=== PATIENT | female | born 2000 | race Two or more races ===

== ENCOUNTER 2022-11-18 20:02 | Inpatient (IN) | payer MEDICAID ==
[~2022-11-18] VITALS: Ht 121.9 cm; Wt 67.0 kg
--- NOTE | 2022-11-18 20:36 | NUR ---
CLEANSED PT OF A BM AND FRESH ATTENDS PLACED.
[2022-11-18 20:47] LABS: BILIRUBIN,URINE NEGATIVE (Neg); CLARITY,URINE SLIGHTLY CLOUDY (Clear); COLOR,URINE YELLOW (Yellow); GLUCOSE, URINE NEGATIVE (Neg); KETONES,URINE 15 mg/dl (Neg); LEUKOCYTE ESTERASE ,URINE NEGATIVE (Neg); NITRITES, URINE NEGATIVE (Neg); OCCULT BLOOD,URINE SMALL (Neg); PH,URINE 8.5 (4.8-8.0); PROTEIN,URINE 30 mg/dl (Neg)
[2022-11-18 21:02] LABS: UA COLLECTION TYPE OTHER
[2022-11-18 21:04] LABS: SQUAMOUS EPITHELIAL CELL,UR NONE SEEN /LPF (FEW)
[2022-11-18 21:06] LABS: BACTERIA,URINE 2+ /HPF (Neg); MUCUS STRANDS MANY /LPF (Neg)
[2022-11-18 21:12] LABS: BASOPHILS % (AUTO) 0.2 % (0-1); EOSINOPHILS # (AUTO) 0.1 X10'3 (0-0.9); EOSINOPHILS % (AUTO) 0.7 % (0-6); HEMATOCRIT 43.3 % (35.0-45.0); HEMOGLOBIN 14.8 g/dl (12.0-16.0); LYMPHOCYTES # (AUTO) 2.7 X10'3 (1.1-4.8); LYMPHOCYTES % (AUTO) 21.7 % (21-51); MEAN CORPUSCULAR HEMOGLOBIN 33.3 PG (27.0-31.0); MEAN CORPUSCULAR HGB CONC 34.2 g/dL (33.0-36.5); MEAN CORPUSCULAR VOLUME 97.5 FL (78-98); MEAN PLATELET VOLUME 7.2 FL (7.4-10.4); MONOCYTES # (AUTO) 3.1 X10'3 (0-0.9); NEUTROPHILS # (AUTO) 6.6 X10'3 (1.8-7.7); NEUTROPHILS % (AUTO) 52.4 % (42-75); PLATELET COUNT 196 X10'3 (140-440); RED BLOOD COUNT 4.44 X10'6 (4.20-5.60); RED CELL DISTRIBUTION WIDTH 14.1 % (11.5-14.5); WHITE BLOOD COUNT 12.5 X10'3 (4.5-11.0)
--- NOTE | 2022-11-18 21:18 | NUR ---
received report assumed care of pt upon arrival pcxr labs completed pt has career consultant at bedside
[2022-11-18 21:45] LABS: TOTAL CELLS COUNTED 100
[2022-11-18 21:48] LABS: PLATELET ESTIMATE NORMAL
[2022-11-18 21:52] LABS: ANISOCYTOSIS 1+
[2022-11-18 22:18] LABS: ALANINE AMINOTRANSFERASE 19 U/L (12-78); ALBUMIN/GLOBULIN RATIO 0.5 (1.1-1.5); ALKALINE PHOSPHATASE 88 IU/L (46-116); ANION GAP 11 (8-16); ASPARTATE AMINO TRANSFERASE 20 U/L (10-37); BILIRUBIN,TOTAL 0.3 MG/DL (0.1-1.0); BLOOD UREA NITROGEN 13 MG/DL (7-18); BUN/CREATININE RATIO 28.3 (10.0-20.0); CALCIUM 9.5 MG/DL (8.5-10.1); CHLORIDE 99 MMOL/L (99-107); CREATININE 0.46 MG/DL (0.40-0.90); GLUCOSE 101 MG/DL (70-104); POTASSIUM 4.5 MMOL/L (3.5-5.1); SODIUM 136 MMOL/L (135-145); TOTAL PROTEIN 8.8 G/DL (6.4-8.2); eCRCL 53 ML/MIN; eGFR > 90 ML/MIN
[2022-11-18] MEDS ORDERED: normal saline 1000ML IV soln IVB ONE (22:35)
[2022-11-18] MEDS ORDERED: piperacillin/tazo 3.375gm/50ml 50 ML IV ONE (22:35)
[2022-11-18 23:37] LABS: PROTHROMBIN TIME 10.3 SECONDS (9.0-12.0)
[2022-11-19] VITALS (15 sets, daily range): BP systolic 106–149; BP diastolic 61–90; PULSE 64–140; RESP 12–24; TEMP 96.8–97.7; O2SAT 91–97
[2022-11-19] MEDS ORDERED: BACL20TA PO (00:47)
[2022-11-19] MEDS ORDERED: GUAI10LI15 PEG (00:47)
[2022-11-19] MEDS ORDERED: VALP250C44 PEG (00:47)
--- NOTE | 2022-11-19 00:55 | NUR ---
assumed care from [facility]
[2022-11-19] MEDS ORDERED: acetaminophen 325mg tablet PO PRN (01:20)
[2022-11-19] MEDS ORDERED: magnesium hydroxide 30ml (MOM) UD suspension PO PRN (01:20)
[2022-11-19] MEDS ORDERED: potassium Cl 40MEQ/1/2NS 520ml 520 ML IV PRN (01:20)
[2022-11-19] MEDS ORDERED: mag hydrox/Alum hydrox/simeth 30ml oral suspension PO PRN (01:20)
[2022-11-19] MEDS ORDERED: ondansetron/PF 4mg/2ml inj IV PRN (01:20)
[2022-11-19] MEDS ORDERED: PERFLUTREN PROTEIN-A MICROSPHR (Optison) 0.22 MG/ML 3ML VIAL IV PRN (01:30)
[2022-11-19] MEDS ORDERED: MIDO5TAB4 GT (01:38)
[2022-11-19] MEDS ORDERED: ARFO15VI20 NEB (01:38)
[2022-11-19] MEDS ORDERED: BACL20TA2 PO (01:38)
[2022-11-19] MEDS ORDERED: BUDE0.5A3 NEB (01:38)
[2022-11-19] MEDS ORDERED: LEVE500S9 GT (01:38)
[2022-11-19] MEDS ORDERED: VALP250S3 GT (01:38)
[2022-11-19] MEDS ORDERED: MULT9LIQ7 GT (01:40)
[2022-11-19] MEDS: normal saline 1000ml 1,000 ML IV SCH ×3 (02:05→21:56)
--- NOTE | 2022-11-19 03:26 | NUR ---
attempted to call report to floor, nurse demond thomason. awaiting return call
[2022-11-19] MEDS: albuterol 2.5 MG/3 ML nebule NEB SCH ×4 (03:27→20:01)
[2022-11-19] MEDS: piperacillin/tazo 3.375gm/50ml 50 ML IV SCH ×3 (05:40→22:19)
[2022-11-19] MEDS: valproate sod 250mg/5ml UD oral syrup JT SCH ×3 (08:00→21:14)
[2022-11-19] MEDS: docusate sod 100mg capsule PO SCH ×2 (08:00→20:00)
[2022-11-19] MEDS ORDERED: baclofen 10mg tablet PO SCH (08:00)
[2022-11-19] MEDS: budesonide 0.5mg/2ml UD nebule IH SCH ×2 (09:11→20:01)
--- NOTE | 2022-11-19 10:44 | NUR ---
Judson Consult: Chalo Granados w/ skin intact per EMR. Addendum: 11/19/22 at [address] Amended: Links added.
[2022-11-19 10:58] LABS: BASOPHILS # (AUTO) 0.1 X10'3 (0-0.2); BASOPHILS % (AUTO) 0.6 % (0-1); EOSINOPHILS # (AUTO) 0.1 X10'3 (0-0.9); EOSINOPHILS % (AUTO) 1.2 % (0-6); HEMATOCRIT 38.2 % (35.0-45.0); LYMPHOCYTES % (AUTO) 19.2 % (21-51); MEAN CORPUSCULAR HEMOGLOBIN 33.6 PG (27.0-31.0); MEAN CORPUSCULAR HGB CONC 34.1 g/dL (33.0-36.5); MEAN CORPUSCULAR VOLUME 98.7 FL (78-98); MEAN PLATELET VOLUME 6.5 FL (7.4-10.4); MONOCYTES # (AUTO) 2.5 X10'3 (0-0.9); MONOCYTES % (AUTO) 23.7 % (2-12); NEUTROPHILS # (AUTO) 5.8 X10'3 (1.8-7.7); NEUTROPHILS % (AUTO) 55.3 % (42-75); PLATELET COUNT 190 X10'3 (140-440); RED BLOOD COUNT 3.87 X10'6 (4.20-5.60); WHITE BLOOD COUNT 10.5 X10'3 (4.5-11.0)
[2022-11-19 11:15] LABS: ALANINE AMINOTRANSFERASE 16 U/L (12-78); ALBUMIN 2.7 G/DL (3.4-5.0); ALBUMIN/GLOBULIN RATIO 0.5 (1.1-1.5); ALKALINE PHOSPHATASE 75 IU/L (46-116); ANION GAP 9 (8-16); ASPARTATE AMINO TRANSFERASE 19 U/L (10-37); BILIRUBIN,TOTAL 0.4 MG/DL (0.1-1.0); BLOOD UREA NITROGEN 8 MG/DL (7-18); BUN/CREATININE RATIO 16.3 (10.0-20.0); CALCIUM 9.2 MG/DL (8.5-10.1); CHLORIDE 105 MMOL/L (99-107); CREATININE 0.49 MG/DL (0.40-0.90); GLUCOSE 102 MG/DL (70-104); POTASSIUM 4.4 MMOL/L (3.5-5.1); SODIUM 140 MMOL/L (135-145); TOTAL CARBON DIOXIDE 26.2 MMOL/L (24-32); TOTAL PROTEIN 7.9 G/DL (6.4-8.2); VALPROATE 59 UG/ML (50-100); eCRCL 50 ML/MIN; eGFR > 90 ML/MIN
[2022-11-19 11:17] LABS: PLATELET ESTIMATE NORMAL; TOTAL CELLS COUNTED 100
[2022-11-19 11:18] LABS: POLYCHROMASIA FEW; TOXIC VACUOLATION FEW
[2022-11-19] MEDS: levetiracetam 100mg/ml oral solution 5ml UD cup GT SCH ×2 (11:28→21:14)
[2022-11-19] MEDS: heparin, porcine 5000 units/ml vial SQ SCH ×2 (12:08→21:31)
[2022-11-19] MEDS: baclofen 10mg tablet PO SCH ×2 (16:21→21:14)
--- NOTE | 2022-11-19 18:58 | NUR ---
Problems reprioritized. Patient report given, questions answered & plan of care reviewed with DOUGIE CAT.
[2022-11-20] VITALS (12 sets, daily range): BP systolic 120–129; BP diastolic 68–77; PULSE 93–114; RESP 15–28; TEMP 97.7–98.7; O2SAT 84–96
[2022-11-20] MEDS: albuterol 2.5 MG/3 ML nebule NEB SCH ×4 (03:48→20:29)
[2022-11-20] MEDS: piperacillin/tazo 3.375gm/50ml 50 ML IV SCH ×3 (05:10→21:36)
--- NOTE | 2022-11-20 06:26 | NUR ---
Patient in room [facility]TH[facility] 4022A. I have received report from DOUGIE CAT and had the opportunity to ask questions and assume patient care.
--- NOTE | 2022-11-20 06:27 | NUR ---
Problems reprioritized. Patient report given, questions answered & plan of care reviewed with DOUGIE MANDEL.
[2022-11-20 07:12] LABS: BASOPHILS % (AUTO) 0.5 % (0-1); EOSINOPHILS # (AUTO) 0.2 X10'3 (0-0.9); EOSINOPHILS % (AUTO) 2.8 % (0-6); HEMOGLOBIN 12.2 g/dl (12.0-16.0); LYMPHOCYTES # (AUTO) 2.8 X10'3 (1.1-4.8); LYMPHOCYTES % (AUTO) 38.7 % (21-51); MEAN CORPUSCULAR HEMOGLOBIN 33.6 PG (27.0-31.0); MEAN CORPUSCULAR HGB CONC 33.8 g/dL (33.0-36.5); MEAN CORPUSCULAR VOLUME 99.6 FL (78-98); MEAN PLATELET VOLUME 6.7 FL (7.4-10.4); MONOCYTES # (AUTO) 1.2 X10'3 (0-0.9); MONOCYTES % (AUTO) 16.1 % (2-12); NEUTROPHILS # (AUTO) 3.1 X10'3 (1.8-7.7); NEUTROPHILS % (AUTO) 41.9 % (42-75); PLATELET COUNT 216 X10'3 (140-440); RED BLOOD COUNT 3.62 X10'6 (4.20-5.60); WHITE BLOOD COUNT 7.3 X10'3 (4.5-11.0)
[2022-11-20 07:29] LABS: ALANINE AMINOTRANSFERASE 21 U/L (12-78); ALBUMIN 2.4 G/DL (3.4-5.0); ALBUMIN/GLOBULIN RATIO 0.5 (1.1-1.5); ALKALINE PHOSPHATASE 76 IU/L (46-116); ANION GAP 6 (8-16); ASPARTATE AMINO TRANSFERASE 22 U/L (10-37); BILIRUBIN,TOTAL 0.3 MG/DL (0.1-1.0); BLOOD UREA NITROGEN 4 MG/DL (7-18); BUN/CREATININE RATIO 10.3 (10.0-20.0); CALCIUM 8.8 MG/DL (8.5-10.1); CHLORIDE 104 MMOL/L (99-107); CREATININE 0.39 MG/DL (0.40-0.90); GLUCOSE 82 MG/DL (70-104); SODIUM 136 MMOL/L (135-145); TOTAL CARBON DIOXIDE 26.5 MMOL/L (24-32); TOTAL PROTEIN 7.1 G/DL (6.4-8.2); eCRCL 63 ML/MIN; eGFR > 90 ML/MIN
[2022-11-20] MEDS: docusate sod 100mg capsule PO SCH (08:00)
[2022-11-20] MEDS: budesonide 0.5mg/2ml UD nebule IH SCH ×2 (08:37→20:29)
[2022-11-20] MEDS: levetiracetam 100mg/ml oral solution 5ml UD cup GT SCH ×2 (08:47→19:34)
[2022-11-20] MEDS: valproate sod 250mg/5ml UD oral syrup JT SCH ×3 (08:47→19:35)
[2022-11-20] MEDS: heparin, porcine 5000 units/ml vial SQ SCH ×2 (08:48→19:34)
--- NOTE | 2022-11-20 10:14 | NUR ---
TF consult: Pt admit for aspiration pneumonia per EMR. Pt presents with a G-J tube; see TF recs below. EMMANUEL reached out to caregiver Mallory at [facility], reports pt receives continuous Jevity 1.5kcal via G-tube at 55 ml/hr (3 cartons/day) which provides 711ml of volume a day, 1065 kcals, 45g of protein, and 540ml of water. Additionally pt receives 3 water flushes a day of 100ml with medication. LBM on 11/19 routine colace held due to diarrhea per EMR. Will continue to monitor and make recommendations as appropriate. Recommendations: 1.Continuous TF via G-tube of Jevity 1.2kcal at 45ml/hr goal rate. To provide 1080mL volume/day. 1296kcals, 60g of protein, and 872ml of water. 2.Water flushes q4H at 75ml, monitor serum Na 3.Monitor TF tolerance 4.Prealbumin q Sunday/ 5.routine bowel care 6.daily scaled wt Addendum: 11/20/22 at [address] Amended: Links added.
--- NOTE | 2022-11-20 10:25 | NUR ---
DOUGIE Orourke, notified of pt's + MRSA nasal swab, per lab.
[2022-11-20] MEDS ORDERED: acetaminophen 325mg/10.15ml oral unit dose solution GT PRN (12:05)
[2022-11-20] MEDS ORDERED: mag hydrox/Alum hydrox/simeth 30ml oral suspension GT PRN (12:08)
[2022-11-20] MEDS ORDERED: magnesium hydroxide 30ml (MOM) UD suspension GT PRN (12:09)
[2022-11-20 12:47] LABS: PREALBUMIN 14.3 MG/DL (19-36)
[2022-11-20] MEDS: baclofen 10mg tablet JT SCH ×2 (14:54→19:34)
[2022-11-20] MEDS: normal saline 1000ml 1,000 ML IV SCH (16:33)
--- NOTE | 2022-11-20 18:00 | NUR ---
Patient in room [facility]TH[facility] 4022. I have received report from DOUGIE Orourke and had the opportunity to ask questions and assume patient care.
--- NOTE | 2022-11-20 19:04 | NUR ---
Problems reprioritized. Patient report given, questions answered & plan of care reviewed with DOUGIE LIVE.
[2022-11-20] MEDS: docusate sodium 100mg/10ml UD cup GT SCH (19:34)
[2022-11-21] VITALS (13 sets, daily range): BP systolic 111–132; BP diastolic 58–70; PULSE 78–114; RESP 15–20; TEMP 97–100.2; O2SAT 90–98
[2022-11-21] MEDS: albuterol 2.5 MG/3 ML nebule NEB SCH ×4 (03:45→21:18)
[2022-11-21] MEDS: piperacillin/tazo 3.375gm/50ml 50 ML IV SCH ×2 (05:25→13:47)
[2022-11-21] MEDS: normal saline 1000ml 1,000 ML IV SCH ×2 (06:05→21:57)
--- NOTE | 2022-11-21 06:42 | NUR ---
Problems reprioritized. Patient report given, questions answered & plan of care reviewed with GUERRERO Murrell.
[2022-11-21 07:01] LABS: BASOPHILS % (AUTO) 0.3 % (0-1); EOSINOPHILS # (AUTO) 0.2 X10'3 (0-0.9); EOSINOPHILS % (AUTO) 2.7 % (0-6); HEMATOCRIT 37.2 % (35.0-45.0); HEMOGLOBIN 12.5 g/dl (12.0-16.0); LYMPHOCYTES # (AUTO) 2.7 X10'3 (1.1-4.8); LYMPHOCYTES % (AUTO) 40.6 % (21-51); MEAN CORPUSCULAR HEMOGLOBIN 33.1 PG (27.0-31.0); MEAN CORPUSCULAR HGB CONC 33.7 g/dL (33.0-36.5); MEAN CORPUSCULAR VOLUME 98.2 FL (78-98); MEAN PLATELET VOLUME 6.2 FL (7.4-10.4); MONOCYTES # (AUTO) 0.6 X10'3 (0-0.9); MONOCYTES % (AUTO) 9.7 % (2-12); NEUTROPHILS # (AUTO) 3.1 X10'3 (1.8-7.7); NEUTROPHILS % (AUTO) 46.7 % (42-75); PLATELET COUNT 238 X10'3 (140-440); RED BLOOD COUNT 3.79 X10'6 (4.20-5.60); RED CELL DISTRIBUTION WIDTH 13.4 % (11.5-14.5); WHITE BLOOD COUNT 6.7 X10'3 (4.5-11.0)
[2022-11-21 07:34] LABS: ALANINE AMINOTRANSFERASE 22 U/L (12-78); ALBUMIN 2.4 G/DL (3.4-5.0); ALBUMIN/GLOBULIN RATIO 0.5 (1.1-1.5); ALKALINE PHOSPHATASE 74 IU/L (46-116); ANION GAP 9 (8-16); ASPARTATE AMINO TRANSFERASE 26 U/L (10-37); BILIRUBIN,TOTAL 0.2 MG/DL (0.1-1.0); BLOOD UREA NITROGEN 3 MG/DL (7-18); BUN/CREATININE RATIO 9.1 (10.0-20.0); CALCIUM 8.8 MG/DL (8.5-10.1); CHLORIDE 101 MMOL/L (99-107); CREATININE 0.33 MG/DL (0.40-0.90); GLUCOSE 91 MG/DL (70-104); POTASSIUM 3.6 MMOL/L (3.5-5.1); SODIUM 133 MMOL/L (135-145); TOTAL CARBON DIOXIDE 23.3 MMOL/L (24-32); TOTAL PROTEIN 7.2 G/DL (6.4-8.2); eCRCL 74 ML/MIN; eGFR > 90 ML/MIN
[2022-11-21] MEDS: heparin, porcine 5000 units/ml vial SQ SCH ×2 (08:00→21:24)
[2022-11-21] MEDS: valproate sod 250mg/5ml UD oral syrup JT SCH ×3 (08:00→21:25)
[2022-11-21] MEDS: budesonide 0.5mg/2ml UD nebule IH SCH ×2 (08:56→21:18)
--- NOTE | 2022-11-21 09:34 | NUR ---
Judson Consult: Chalo Granados w/ skin intact per EMR. Addendum: 11/21/22 at [address] Amended: Links added.
[2022-11-21] MEDS: docusate sodium 100mg/10ml UD cup GT SCH ×2 (11:03→21:23)
[2022-11-21] MEDS: baclofen 10mg tablet JT SCH ×3 (11:03→21:25)
[2022-11-21] MEDS: levetiracetam 100mg/ml oral solution 5ml UD cup GT SCH ×2 (11:03→21:23)
--- NOTE | 2022-11-21 11:44 | NUR ---
PRESSURE ULCER EDUCATION: DEFINITION: A pressure ulcer is an area of skin that breaks down when you stay in one position too long. The constant pressure against the skin reduces the blood flow to that area and the affected tissue dies. CAUSES: "Being bedridden or in a wheelchair "Fragile skin "Having a chronic condition, such as diabetes or vascular disease "Inability to move certain parts of your body without assistance "Older age "Incontinence of urine or stool SYMPTOMS: "A reddened area that DOES NOT turn white when pressed on - this can be the beginning of a pressure ulcer "A blister, deep sore or a crater - these can be advanced pressure ulcers FIRST AID: "Relieve the pressure on this area "Keep the area clean and dry "Call your primary doctor if you see any of the above symptoms "DO NOT massage the area "DO NOT use a donut shaped or ring shaped pillow- these actually interfere with the blood flow and cause complications PREVENTION: "Check for pressure ulcers everyday "Change position at least every two hours to relieve pressure "Use items that help relieve pressure- pillows, sheepskin, foam padding, and powders. "Keep skin clean and dry "Eat healthy well balanced meals "Exercise daily IF YOU SEE ANY OF THESE SYMPTOMS WHILE IN THE HOSPITAL - TELL YOUR NURSE IMMEDIATELY. IF YOU SEE ANY OF THESE SYMPTOMS WHILE AT HOME OR HAVE ANY QUESTIONS OR CONCERNS ABOUT PRESSURE ULCERS - CALL YOUR PRIMARY DOCTOR IMMEDIATELY. Addendum: 11/21/22 at 1145 by Rustam Conley RN Amended: Links added.
--- NOTE | 2022-11-21 18:00 | NUR ---
I have reviewed and agree with interventions, assessments, and documentation by Nyasia Syk LVN.
--- NOTE | 2022-11-21 18:37 | NUR ---
Patient in room [facility]TH[facility] 4022. I have received report from Nyasia MASTERS and had the opportunity to ask questions and assume patient care.
--- NOTE | 2022-11-21 20:30 | NUR ---
Agree with Yaima Ibarra Counter Pocket Sewer assessment.
[2022-11-21] MEDS: furosemide 20 MG/2 ML vial IV SCH (20:36)
[2022-11-22] VITALS (12 sets, daily range): BP systolic 91–139; BP diastolic 61–83; PULSE 98–114; RESP 16–22; TEMP 97.4–98.7; O2SAT 91–97
[2022-11-22] MEDS: albuterol 2.5 MG/3 ML nebule NEB SCH ×4 (04:14→20:16)
[2022-11-22 06:14] LABS: BASOPHILS % (AUTO) 0.3 % (0-1); EOSINOPHILS # (AUTO) 0.2 X10'3 (0-0.9); EOSINOPHILS % (AUTO) 2.7 % (0-6); HEMATOCRIT 42.2 % (35.0-45.0); HEMOGLOBIN 14.5 g/dl (12.0-16.0); LYMPHOCYTES % (AUTO) 32.1 % (21-51); MEAN CORPUSCULAR HEMOGLOBIN 33.8 PG (27.0-31.0); MEAN CORPUSCULAR HGB CONC 34.3 g/dL (33.0-36.5); MEAN CORPUSCULAR VOLUME 98.4 FL (78-98); MEAN PLATELET VOLUME 6.2 FL (7.4-10.4); MONOCYTES # (AUTO) 1.1 X10'3 (0-0.9); MONOCYTES % (AUTO) 18.3 % (2-12); NEUTROPHILS # (AUTO) 2.9 X10'3 (1.8-7.7); NEUTROPHILS % (AUTO) 46.6 % (42-75); PLATELET COUNT 317 X10'3 (140-440); RED BLOOD COUNT 4.29 X10'6 (4.20-5.60); RED CELL DISTRIBUTION WIDTH 13.9 % (11.5-14.5); WHITE BLOOD COUNT 6.2 X10'3 (4.5-11.0)
[2022-11-22 06:23] LABS: ALANINE AMINOTRANSFERASE 23 U/L (12-78); ALBUMIN 2.8 G/DL (3.4-5.0); ALBUMIN/GLOBULIN RATIO 0.5 (1.1-1.5); ALKALINE PHOSPHATASE 85 IU/L (46-116); ANION GAP 10 (8-16); ASPARTATE AMINO TRANSFERASE 28 U/L (10-37); BILIRUBIN,TOTAL 0.2 MG/DL (0.1-1.0); BLOOD UREA NITROGEN 7 MG/DL (7-18); BUN/CREATININE RATIO 19.4 (10.0-20.0); CALCIUM 9.4 MG/DL (8.5-10.1); CHLORIDE 102 MMOL/L (99-107); CREATININE 0.36 MG/DL (0.40-0.90); POTASSIUM 4.4 MMOL/L (3.5-5.1); SODIUM 137 MMOL/L (135-145); TOTAL PROTEIN 8.5 G/DL (6.4-8.2); eCRCL 68 ML/MIN; eGFR > 90 ML/MIN
[2022-11-22 06:28] LABS: GLUCOSE 110 MG/DL (70-104)
--- NOTE | 2022-11-22 06:46 | NUR ---
Problems reprioritized. Patient report given, questions answered & plan of care reviewed with Cheyanne CONSTANTINO
--- NOTE | 2022-11-22 07:10 | NUR ---
Patient in room [facility]TH[facility] 4022. I have received report from Jovanni and had the opportunity to ask questions and assume patient care.
[2022-11-22] MEDS: levoFLOXACIN-Levaquin 500mg/D5 100 ML IV SCH (08:40)
[2022-11-22] MEDS: furosemide 20 MG/2 ML vial IV SCH ×2 (08:40→20:40)
[2022-11-22] MEDS: baclofen 10mg tablet JT SCH ×3 (08:40→20:47)
[2022-11-22] MEDS: docusate sodium 100mg/10ml UD cup GT SCH ×2 (08:40→20:47)
[2022-11-22] MEDS: levetiracetam 100mg/ml oral solution 5ml UD cup GT SCH ×2 (08:40→20:47)
[2022-11-22] MEDS: heparin, porcine 5000 units/ml vial SQ SCH ×2 (08:41→20:56)
[2022-11-22] MEDS: valproate sod 250mg/5ml UD oral syrup JT SCH ×3 (08:43→20:47)
[2022-11-22] MEDS: normal saline 1000ml 1,000 ML IV SCH (08:45)
[2022-11-22] MEDS: budesonide 0.5mg/2ml UD nebule IH SCH ×2 (09:58→20:16)
--- NOTE | 2022-11-22 18:38 | NUR ---
Problems reprioritized. Patient report given, questions answered & plan of care reviewed with
--- NOTE | 2022-11-22 19:01 | NUR ---
Patient in room [facility]TH[facility] 4022A. I have received report from Cheyanne CONSTANTINO and had the opportunity to ask questions and assume patient care.
[2022-11-23] VITALS (14 sets, daily range): BP systolic 108–136; BP diastolic 73–86; PULSE 86–121; RESP 16–20; TEMP 97.3–98.4; O2SAT 90–98
[2022-11-23] MEDS: albuterol 2.5 MG/3 ML nebule NEB SCH ×4 (03:05→20:26)
[2022-11-23] MEDS: normal saline 1000ml 1,000 ML IV SCH (05:11)
[2022-11-23 06:07] LABS: BASOPHILS % (AUTO) 0.3 % (0-1); EOSINOPHILS # (AUTO) 0.2 X10'3 (0-0.9); EOSINOPHILS % (AUTO) 2.1 % (0-6); HEMOGLOBIN 14.5 g/dl (12.0-16.0); LYMPHOCYTES # (AUTO) 2.5 X10'3 (1.1-4.8); LYMPHOCYTES % (AUTO) 30.5 % (21-51); MEAN CORPUSCULAR HGB CONC 34.5 g/dL (33.0-36.5); MEAN CORPUSCULAR VOLUME 98.6 FL (78-98); MONOCYTES % (AUTO) 24.2 % (2-12); NEUTROPHILS # (AUTO) 3.6 X10'3 (1.8-7.7); NEUTROPHILS % (AUTO) 42.9 % (42-75); PLATELET COUNT 354 X10'3 (140-440); RED BLOOD COUNT 4.26 X10'6 (4.20-5.60); RED CELL DISTRIBUTION WIDTH 13.8 % (11.5-14.5); WHITE BLOOD COUNT 8.3 X10'3 (4.5-11.0)
[2022-11-23 06:11] LABS: ALANINE AMINOTRANSFERASE 30 U/L (12-78); ALBUMIN/GLOBULIN RATIO 0.5 (1.1-1.5); ALKALINE PHOSPHATASE 81 IU/L (46-116); ANION GAP 7 (8-16); ASPARTATE AMINO TRANSFERASE 30 U/L (10-37); BILIRUBIN,TOTAL 0.3 MG/DL (0.1-1.0); BLOOD UREA NITROGEN 11 MG/DL (7-18); BUN/CREATININE RATIO 30.6 (10.0-20.0); CALCIUM 9.4 MG/DL (8.5-10.1); CHLORIDE 100 MMOL/L (99-107); CREATININE 0.36 MG/DL (0.40-0.90); POTASSIUM 4.1 MMOL/L (3.5-5.1); SODIUM 133 MMOL/L (135-145); TOTAL CARBON DIOXIDE 25.6 MMOL/L (24-32); TOTAL PROTEIN 8.7 G/DL (6.4-8.2); eCRCL 68 ML/MIN; eGFR > 90 ML/MIN
--- NOTE | 2022-11-23 06:26 | NUR ---
Problems reprioritized. Patient report given, questions answered & plan of care reviewed with Karime CONSTANTINO
--- NOTE | 2022-11-23 06:30 | NUR ---
Patient in room [facility]TH[facility] 4022. I have received report from Jovanni MASTERS and had the opportunity to ask questions and assume patient care.
[2022-11-23 07:47] LABS: GLUCOSE 96 MG/DL (70-104)
[2022-11-23] MEDS: budesonide 0.5mg/2ml UD nebule IH SCH ×2 (08:13→20:26)
[2022-11-23 09:10] LABS: PLATELET ESTIMATE NORMAL; TOTAL CELLS COUNTED 100
[2022-11-23] MEDS: levoFLOXACIN-Levaquin 500mg/D5 100 ML IV SCH (09:19)
[2022-11-23] MEDS: furosemide 20 MG/2 ML vial IV SCH ×2 (09:20→20:24)
[2022-11-23] MEDS: valproate sod 250mg/5ml UD oral syrup JT SCH ×3 (09:20→20:25)
[2022-11-23] MEDS: docusate sodium 100mg/10ml UD cup GT SCH ×2 (09:20→20:24)
[2022-11-23] MEDS: heparin, porcine 5000 units/ml vial SQ SCH ×2 (09:20→20:24)
[2022-11-23] MEDS: baclofen 10mg tablet JT SCH ×3 (09:21→20:25)
[2022-11-23] MEDS: levetiracetam 100mg/ml oral solution 5ml UD cup GT SCH ×2 (09:21→20:24)
--- NOTE | 2022-11-23 09:41 | NUR ---
Reassessment: Pt remains NPO and tolerating TF at goal rate with GRV WNL. Noted serum Na slightly low today. Pt receiving 75 mL water flushes Q4H which may need to be adjusted if serum Na does not improve. LBM 11/22 per EMR. No changes to nutrition recommendations at this time. Will continue to follow. Recommendations: 1. Continuous TF via G-tube using Jevity 1.2 at 45 mL/hr goal rate to provide 1080 mL volume/day. 1296 kcal, 60 g protein, and 872 ml water 2. Additional 75 mL water flush Q4H; monitor serum Na and need to adjust 3. Prealbumin q Sunday/ 4. Routine bowel care 5. Daily scaled weights Addendum: 11/23/22 at [address] Amended: Links added.
[2022-11-24] VITALS (14 sets, daily range): BP systolic 124; BP diastolic 70–71; PULSE 91–114; RESP 16–22; TEMP 97–97.5; O2SAT 86–96
[2022-11-24] MEDS: normal saline 1000ml 1,000 ML IV SCH ×2 (02:04→21:49)
[2022-11-24] MEDS: albuterol 2.5 MG/3 ML nebule NEB SCH ×4 (02:33→20:00)
--- NOTE | 2022-11-24 06:39 | NUR ---
Patient in room ORTH[facility] 4022. I have received report from DOUGIE Galeana and had the opportunity to ask questions and assume patient care.
[2022-11-24] MEDS: budesonide 0.5mg/2ml UD nebule IH SCH ×2 (07:49→20:00)
[2022-11-24] MEDS: levoFLOXACIN-Levaquin 500mg/D5 100 ML IV SCH (08:06)
[2022-11-24] MEDS: docusate sodium 100mg/10ml UD cup GT SCH ×4 (08:29→21:16)
[2022-11-24] MEDS: valproate sod 250mg/5ml UD oral syrup JT SCH ×3 (08:29→21:05)
[2022-11-24] MEDS: levetiracetam 100mg/ml oral solution 5ml UD cup GT SCH ×2 (08:29→21:05)
[2022-11-24] MEDS: baclofen 10mg tablet JT SCH ×3 (08:34→21:06)
[2022-11-24] MEDS: heparin, porcine 5000 units/ml vial SQ SCH ×2 (08:36→21:06)
[2022-11-24] MEDS: furosemide 20 MG/2 ML vial IV SCH (09:05)
[2022-11-24 10:19] LABS: BASOPHILS % (AUTO) 0.4 % (0-1); EOSINOPHILS # (AUTO) 0.1 X10'3 (0-0.9); EOSINOPHILS % (AUTO) 0.9 % (0-6); HEMATOCRIT 41.2 % (35.0-45.0); LYMPHOCYTES # (AUTO) 2.1 X10'3 (1.1-4.8); LYMPHOCYTES % (AUTO) 28.1 % (21-51); MEAN CORPUSCULAR HEMOGLOBIN 33.6 PG (27.0-31.0); MEAN CORPUSCULAR VOLUME 98.7 FL (78-98); MEAN PLATELET VOLUME 5.9 FL (7.4-10.4); MONOCYTES # (AUTO) 1.6 X10'3 (0-0.9); MONOCYTES % (AUTO) 20.4 % (2-12); NEUTROPHILS # (AUTO) 3.8 X10'3 (1.8-7.7); NEUTROPHILS % (AUTO) 50.2 % (42-75); PLATELET COUNT 360 X10'3 (140-440); RED BLOOD COUNT 4.17 X10'6 (4.20-5.60); WHITE BLOOD COUNT 7.6 X10'3 (4.5-11.0)
[2022-11-24 10:35] LABS: ALANINE AMINOTRANSFERASE 24 U/L (12-78); ALBUMIN 2.9 G/DL (3.4-5.0); ALBUMIN/GLOBULIN RATIO 0.5 (1.1-1.5); ALKALINE PHOSPHATASE 75 IU/L (46-116); ANION GAP 8 (8-16); ASPARTATE AMINO TRANSFERASE 27 U/L (10-37); BILIRUBIN,TOTAL 0.3 MG/DL (0.1-1.0); BLOOD UREA NITROGEN 12 MG/DL (7-18); BUN/CREATININE RATIO 28.6 (10.0-20.0); CALCIUM 9.5 MG/DL (8.5-10.1); CHLORIDE 98 MMOL/L (99-107); CREATININE 0.42 MG/DL (0.40-0.90); POTASSIUM 4.4 MMOL/L (3.5-5.1); SODIUM 130 MMOL/L (135-145); TOTAL PROTEIN 8.3 G/DL (6.4-8.2); eCRCL 58 ML/MIN; eGFR > 90 ML/MIN
[2022-11-24 10:38] LABS: GLUCOSE 130 MG/DL (70-104)
[2022-11-24] MEDS ORDERED: LEVO-65 PO (14:53)
--- NOTE | 2022-11-24 14:53 | NUR ---
DISTRIBUTION ASSOCIATE documentation: I have reviewed and agree with all interventions, assessments performed and documented by Quan Gonzales LVN.
--- NOTE | 2022-11-24 18:59 | NUR ---
Problems reprioritized. Patient report given, questions answered & plan of care reviewed with DOUGIE Lua.
--- NOTE | 2022-11-24 19:00 | NUR ---
Patient in room ORTH[facility] 4022. I have received report from QUIRINO MASTERS and had the opportunity to ask questions and assume patient care.
--- NOTE | 2022-11-24 22:40 | NUR ---
Problems reprioritized. Patient report given, questions answered & plan of care reviewed with KALEN CONSTANTINO.
[2022-11-25] VITALS (7 sets, daily range): BP systolic 104; BP diastolic 58; PULSE 77–101; RESP 16–20; TEMP 97.5; O2SAT 93–94
[2022-11-25] MEDS: albuterol 2.5 MG/3 ML nebule NEB SCH ×2 (03:00→08:00)
--- NOTE | 2022-11-25 06:48 | NUR ---
Patient in room ORTHO 4022. I have received report from KALEN CONSTANTINO and had the opportunity to ask questions and assume patient care.
--- NOTE | 2022-11-25 07:23 | NUR ---
PAGER ID: [phone] MESSAGE: DOUGIE CHAND, ORTHO, [phone], RE: [phone]. RESIDENTIAL PICKING UP PT. AT 9AM. BUT PT. IS ON 2L NC AT 92% SAT. 88-99% WITHOUT IT. GILBERT. THANKS. Addendum: 11/25/22 at 0728 by Kendrick Coyle RN CALLED BACK SAYS 88% IS FINE FOR DISCHARGE. AND TO TAKE 02 OFF AND CHECK IN 5MIN.
[2022-11-25] MEDS: budesonide 0.5mg/2ml UD nebule IH SCH (08:00)
[2022-11-25] MEDS: docusate sodium 100mg/10ml UD cup GT SCH (08:30)
[2022-11-25] MEDS: levetiracetam 100mg/ml oral solution 5ml UD cup GT SCH (08:30)
[2022-11-25] MEDS: baclofen 10mg tablet JT SCH (08:30)
[2022-11-25] MEDS: heparin, porcine 5000 units/ml vial SQ SCH (08:31)
[2022-11-25] MEDS: levoFLOXACIN-Levaquin 500mg/D5 100 ML IV SCH (08:31)
[2022-11-25] MEDS: valproate sod 250mg/5ml UD oral syrup JT SCH (08:32)
--- NOTE | 2022-11-25 10:08 | NUR ---
PT. DISCHARGED ON ROOM AIR AT 94% SAT. IV CANNULA WHOLE AND INTACT UPON REMOVAL. DISCHARGED AT 0900H SAFELY WITH [facility] [employer] SIGNAL TECHNICIAN IN [facility]. PT. LEFT WITH ALL BELONGINGS. PT. CAREGIVER EDUCATED ON NEW MEDS AND PLAN OF CARE. REPORT GIVEN TO CAREGIVER ON PHONE AT THE FACILITY. PT. STABLE AND ALERT UPON DISCHARGE.
== END 2022-11-25 09:30 | disposition home or self-care (01) | DRG 720 ==
LOC: ER 20:02 → ED HOLD 11-19 01:27 → ORTHO 4S 11-19 04:02
PROVIDERS: ADMIT Internal Medicine; ATTEND Internal Medicine
DX: A41.9 Sepsis, unspecified organism (principal); J96.01 Acute respiratory failure with hypoxia; J69.0 Pneumonitis due to inhalation of food and vomit; Z66 Do not resuscitate; E87.1 Hypo-osmolality and hyponatremia; Z20.822 Contact with and (suspected) exposure to COVID-19; G40.909 Epilepsy, unspecified, not intractable, without status epilepticus; G80.9 Cerebral palsy, unspecified; Z93.1 Gastrostomy status
CPT/HCPCS: 36415; 71045; 71250; 80053; 80164; 80177; 81001; 83605; 84134; 84145; 85007; 85025; 85379; 85610; 85651; 87040; 87081; 87088; 87811; 93005; 93308; 94640; 94760; 99285; A4353; A4615; A6213; A6250; G0378; J1644; J1940; J1953; J1956; J2543; J7030

== ENCOUNTER 2023-01-05 15:19 | Emergency (ER) | payer MEDICAID ==
[~2023-01-05] VITALS: Ht 149.9 cm; Wt 59.1 kg
[~2023-01-05 15:19] MED LIST: ARFO15VI20 NEB; BACL20TA2 PO; BUDE0.5A3 NEB; LEVE500S9 GT; MIDO5TAB4 GT; MULT9LIQ7 GT; VALP250S3 GT
--- NOTE | 2023-01-05 15:55 | NUR ---
PT BIBA WITH C/O HYPOXIA / RESP DISTRESS. PT IS NONVERBAL AND DISABLED, UNABLE TO PARTICIPATE IN EVALUATION.
--- NOTE | 2023-01-05 16:26 | NUR ---
SPOKE WITH . PLAN IS CHEST XRAY AND EVAL.
[2023-01-05] MEDS ORDERED: dexamethasone sod phosphate 10mg/ml inj IM STA (16:34)
[2023-01-05] MEDS ORDERED: albuterol 2.5 MG/3 ML nebule NEB ONE (16:35)
[2023-01-05] MEDS ORDERED: ipratropium 0.5 MG/2.5ML nebule IH ONE (16:35)
[2023-01-05 16:46] VITALS: PULSE 82; PULSE 99; RESP 22; O2SAT 96; O2SAT 99
[2023-01-05] MEDS ORDERED: clindamycin 150mg capsule PO ONE (18:05)
[2023-01-05] MEDS ORDERED: INHA1SPA48 (18:49)
[2023-01-05] MEDS ORDERED: PRED15SO71 PO (18:49)
[2023-01-05] MEDS ORDERED: ALBU8HFA PO (18:49)
[2023-01-05] MEDS ORDERED: AMOX600S74 PO (18:49)
[2023-01-05 19:36] VITALS: BP 108/73; PULSE 106; RESP 17; TEMP 98; O2SAT 98
== END 2023-01-05 19:38 | disposition home or self-care (01) ==
LOC: ER 15:20
DX: J18.9 Pneumonia, unspecified organism (principal); G80.9 Cerebral palsy, unspecified; Z79.899 Other long term (current) drug therapy
CPT/HCPCS: 71045; 94640; 96372; 99284; J1100; 94760

== ENCOUNTER 2023-08-26 17:02 | Emergency (ER) | payer MEDICAID ==
[~2023-08-26] VITALS: Ht 129.5 cm; Wt 45.5 kg
[~2023-08-26 17:02] MED LIST changes: +INHA1SPA48; +PRED15SO71 PO
[2023-08-26] MEDS ORDERED: CHLO118L3 TOP (18:42)
[2023-08-26] MEDS: chlorhexidine gluc 4% **topical ** 120ml btl. TP ONE (19:05)
[2023-08-26] MEDS: vitamin A & D ointment-NF 1 APPLIC TUBE TP ONE (19:05)
[2023-08-26 19:35] VITALS: BP 120/71; PULSE 65; RESP 16; TEMP 97.8; O2SAT 96
== END 2023-08-26 19:37 | disposition home or self-care (01) ==
LOC: ER 17:03
DX: B87.0 Cutaneous myiasis (principal); Z79.899 Other long term (current) drug therapy; Z79.1 Long term (current) use of non-steroidal anti-inflammatories (NSAID); Z79.2 Long term (current) use of antibiotics
CPT/HCPCS: 99283